=== PATIENT | male | born 1960 | race Caucasian/White ===

== ENCOUNTER 2020-05-11 12:29 | Inpatient (IN) | payer MEDICARE, MEDICAID ==
[~2020-05-11] VITALS: Ht 167.6 cm; Wt 100.5 kg
[2020-05-11 13:19] LABS: BASOPHILS # (AUTO) 0.01 x10^3/uL (0-0.1); BASOPHILS % (AUTO) 0 % (0-1); EOSINOPHILS # (AUTO) 0.05 x10^3/uL (0-0.4); EOSINOPHILS % (AUTO) 1 % (1-7); LYMPHOCYTES # (AUTO) 0.82 x10^3/uL (1-3.4); LYMPHOCYTES % (AUTO) 12 % (22-44); MD NO; MEAN CORPUSCULAR HEMOGLOBIN 33.3 pg (27.5-34.5); MEAN CORPUSCULAR HGB CONC 32.5 g/dL (33.2-36.2); MEAN PLATELET VOLUME 8.8 fL (7.4-10.4); MONOCYTES # (AUTO) 0.73 x10^3/uL (0.2-0.8); MONOCYTES % (AUTO) 10 % (2-9); NEUTROPHILS # (AUTO) 5.43 x10^3/uL (1.8-6.8); NEUTROPHILS % (AUTO) 77 % (42-75); PLATELET COUNT 151 x10^3/uL (130-400); RED BLOOD COUNT 3.89 x10^6/uL (4.38-5.82)
--- NOTE | 2020-05-11 13:23 | NUR ---
PT STATES INCREASING ABD DISTENTION X2 MONTHS. PT STATES ANITHA SOB WELL. PT PLACED ON MONITORS, IV STARTED. LABS DRAWN, SENT TO LAB. AWAITING XRAY RESULTS. PT IN RESPIR DISTRESS. CONT TO MONITOR.
[2020-05-11 13:31] LABS: ALANINE AMINOTRANSFERASE 37 U/L (12-78); ALBUMIN 2.5 g/dL (3.4-5.0); ANION GAP 6 mmol/L (5-15); CALCIUM 8.5 mg/dL (8.5-10.1); CHLORIDE 100 mmol/L (98-107)
[2020-05-11 13:36] LABS: ALKALINE PHOSPHATASE 282 U/L (45-117); CREATININE 0.93 mg/dL (0.7-1.3); TOTAL PROTEIN 7.5 g/dL (6.4-8.2); TROPONIN I < 0.015 ng/mL (0.000-0.045)
--- NOTE | 2020-05-11 14:22 | NUR ---
PT UA COLLECTED, SENT TO LAB. PT REMAINS ON MONITORS, VSS. NO RESPIR DISTRESS. CONT TO MONITOR.
[2020-05-11 14:29] LABS: MICROSCOPIC NOT IND
--- NOTE | 2020-05-11 15:19 | NUR ---
US AT BEDSIDE FOR EXAM.
[2020-05-11] MEDS ORDERED: FUROSEMIDE 40 MG/4 ML ONE (16:07)
--- NOTE | 2020-05-11 16:18 | NUR ---
PT RESTING IN BED, AWARE OF POC, WILL GO TO IR FOR PARACENTESIS. PT REMAINS ON MONITORS, VSS. CONT TO MONITOR.
[2020-05-11] MEDS ORDERED: FUROSEMIDE 40 MG/4 ML IV ONE (16:30)
[2020-05-11] MEDS ORDERED: AZITHROMYCIN 500 MG in SODIUM CHLORIDE 0.9% 250 ML IV ONE (16:30)
[2020-05-11] MEDS ORDERED: CEFTRIAXONE PMX 1GM/50ML 50 ML IVPB ONE (16:30)
[2020-05-11] MEDS ORDERED: CEFTRIAXONE PMX 1GM/50ML 50 ML ONE (16:34)
[2020-05-11] MEDS ORDERED: LIDOCAINE 1%, 10ML ONE (17:09)
--- NOTE | 2020-05-11 17:18 | NUR ---
PT TO IR.
[2020-05-11] MEDS ORDERED: POLYETHYLENE GLYCOL 17 GM PACKET PO PRN (18:00)
[2020-05-11] MEDS ORDERED: ONDANSETRON ODT 4 MG PO PRN (18:00)
[2020-05-11] MEDS ORDERED: BISACODYL 10 MG SUPP PR PRN (18:00)
[2020-05-11] MEDS ORDERED: OXYcodone IR 5MG TABLET PO PRN (18:00)
--- NOTE | 2020-05-11 18:05 | NUR ---
PT BACK FROM IR, PER IR TECH, 6L ABD FLUID REMOVED FROM PT. ADMITTING AT BEDSIDE FOR ASSESSMENT.
[2020-05-11] MEDS ORDERED: HEPARIN 5,000 UNITS/ML, 1ML ONE (18:13)
--- NOTE | 2020-05-11 18:16 | NUR ---
MEDICATIONS (ZITHROMAX) REQUESTED FROM PHARMACY, OMNICELL OUT OF MEDICATION.
[2020-05-11] MEDS: HEPARIN 5,000 UNITS/ML, 1ML SQ SCH (18:26)
[2020-05-11 18:32] LABS: INTERNATIONAL NORMALIZED RATIO 1.07 (0.93-1.1); PROTHROMBIN TIME 11.3 Seconds (9.6-11.5)
[2020-05-11 19:01] LABS: CELLS COUNTED 92
--- NOTE | 2020-05-11 19:33 | NUR ---
PT RESTING IN BED, REMAINS ON MONITORS, VSS. PT AWAITING ADMIT BED. PT REMAINS AWARE OF PLAN OF CARE, VERBALIZED UNDERSTANDING. CONT TO MONITOR.
[2020-05-11] MEDS: SODIUM CHLORIDE FLUSH 10ML SYR IVF SCH (20:23)
[2020-05-11] MEDS ORDERED: FURO-93 PO (20:29)
[2020-05-11] MEDS ORDERED: POTA99TA24 PO (20:30)
--- NOTE | 2020-05-11 20:30 | NUR ---
REPORT JOSR GEORGES RN. PT OK TO TRANSFER TO FLOOR.
--- NOTE | 2020-05-11 20:40 | NUR ---
PT TRANSFERED TO [facility], HAS ALL OWN BELONGINGS UPON TRANSFER.
[2020-05-11 20:51] VITALS: BP 146/82
[2020-05-11 21:27] VITALS: BP 146/82
[2020-05-12 01:44] VITALS: BP 120/68
[2020-05-12] MEDS: HEPARIN 5,000 UNITS/ML, 1ML SQ SCH ×3 (02:18→17:50)
[2020-05-12 06:28] LABS: ALBUMIN 2.2 g/dL (3.4-5.0); ANION GAP 6 mmol/L (5-15); CHLORIDE 101 mmol/L (98-107)
[2020-05-12 06:31] LABS: ALANINE AMINOTRANSFERASE 31 U/L (12-78); ALKALINE PHOSPHATASE 251 U/L (45-117); CREATININE 0.71 mg/dL (0.7-1.3); TOTAL PROTEIN 6.7 g/dL (6.4-8.2)
[2020-05-12 06:35] LABS: BASOPHILS # (AUTO) 0.03 x10^3/uL (0-0.1); BASOPHILS % (AUTO) 1 % (0-1); EOSINOPHILS % (AUTO) 2 % (1-7); LYMPHOCYTES # (AUTO) 0.85 x10^3/uL (1-3.4); LYMPHOCYTES % (AUTO) 17 % (22-44); MD NO; MEAN CORPUSCULAR HEMOGLOBIN 33.9 pg (27.5-34.5); MEAN CORPUSCULAR HGB CONC 33.7 g/dL (33.2-36.2); MEAN PLATELET VOLUME 8.7 fL (7.4-10.4); MONOCYTES # (AUTO) 0.71 x10^3/uL (0.2-0.8); MONOCYTES % (AUTO) 14 % (2-9); NEUTROPHILS # (AUTO) 3.42 x10^3/uL (1.8-6.8); NEUTROPHILS % (AUTO) 67 % (42-75); PLATELET COUNT 117 x10^3/uL (130-400); RED BLOOD COUNT 3.58 x10^6/uL (4.38-5.82); RED CELL DISTRIBUTION WIDTH 14.1 % (9.4-14.8)
[2020-05-12 07:16] VITALS: BP 112/67
[2020-05-12] MEDS: SODIUM CHLORIDE FLUSH 10ML SYR IVF SCH ×2 (08:14→21:37)
[2020-05-12] MEDS: FUROSEMIDE 20 MG/2 ML IV SCH ×2 (08:14→17:49)
[2020-05-12] MEDS: SENNA/DOCUSATE TABLET PO SCH (08:15)
[2020-05-12] MEDS ORDERED: DEXTROSE 50%, 50ML SYRINGE IVPush PRN (12:30)
[2020-05-12] MEDS ORDERED: DEXTROSE 4 GM TAB.CHEW PO PRN (12:30)
[2020-05-12] MEDS ORDERED: GLUCAGON 1 MG IM PRN (12:30)
[2020-05-12 12:52] VITALS: BP 119/89
[2020-05-12] MEDS: INSULIN LISPRO 100 UNITS/ML, PEN SQ-INSULIN SCH ×4 (13:05→21:37)
[2020-05-12 19:16] VITALS: BP 108/63
[2020-05-12] MEDS: INSULIN NPH HUMAN 100 UNIT/ML, 3ML VIAL SQ-INSULIN SCH (21:36)
[2020-05-13 01:17] VITALS: BP 111/64
[2020-05-13] MEDS: HEPARIN 5,000 UNITS/ML, 1ML SQ SCH ×2 (03:09→12:23)
[2020-05-13 05:56] LABS: ANION GAP 7 mmol/L (5-15); CALCIUM 8.3 mg/dL (8.5-10.1); CHLORIDE 101 mmol/L (98-107)
[2020-05-13 05:58] LABS: BASOPHILS # (AUTO) 0.02 x10^3/uL (0-0.1); BASOPHILS % (AUTO) 0 % (0-1); EOSINOPHILS # (AUTO) 0.13 x10^3/uL (0-0.4); EOSINOPHILS % (AUTO) 3 % (1-7); LYMPHOCYTES # (AUTO) 0.97 x10^3/uL (1-3.4); LYMPHOCYTES % (AUTO) 19 % (22-44); MD NO; MEAN CORPUSCULAR HEMOGLOBIN 33.7 pg (27.5-34.5); MEAN CORPUSCULAR HGB CONC 33.5 g/dL (33.2-36.2); MEAN PLATELET VOLUME 9.1 fL (7.4-10.4); MONOCYTES # (AUTO) 0.79 x10^3/uL (0.2-0.8); MONOCYTES % (AUTO) 15 % (2-9); NEUTROPHILS # (AUTO) 3.34 x10^3/uL (1.8-6.8); NEUTROPHILS % (AUTO) 64 % (42-75); PLATELET COUNT 116 x10^3/uL (130-400); RED BLOOD COUNT 3.72 x10^6/uL (4.38-5.82)
[2020-05-13 05:59] LABS: CREATININE 0.71 mg/dL (0.7-1.3)
[2020-05-13] MEDS ORDERED: INSULIN REGULAR 100 UNITS/ML, 3ML VIAL SQ-INSULIN SCH (07:30)
[2020-05-13] MEDS: INSULIN LISPRO 100 UNITS/ML, PEN SQ-INSULIN SCH ×4 (07:40→12:24)
[2020-05-13 07:54] VITALS: BP 129/76
[2020-05-13] MEDS: FUROSEMIDE 20 MG/2 ML IV SCH (09:22)
[2020-05-13] MEDS: SODIUM CHLORIDE FLUSH 10ML SYR IVF SCH (09:23)
[2020-05-13] MEDS: INSULIN NPH HUMAN 100 UNIT/ML, 3ML VIAL SQ-INSULIN SCH (09:23)
[2020-05-13] MEDS: SENNA/DOCUSATE TABLET PO SCH (09:23)
== END 2020-05-13 13:28 | disposition home or self-care (01) | DRG 433 ==
LOC: ED 17:05 → EDIP 17:13 → ED 17:20 → 4WST 20:45 → DCLOUNGE 05-13 13:13
PROVIDERS: ADMIT Internal Medicine; ATTEND Hospitalist
PROC: 0W9G3ZX Drainage of Peritoneal Cavity, Percutaneous Approach, Diagnostic (ICD-10-PCS; principal; 2020-05-11)
DX: K74.60 Unspecified cirrhosis of liver (principal); R18.8 Other ascites; F20.0 Paranoid schizophrenia; E87.1 Hypo-osmolality and hyponatremia; E87.2 Acidosis; E78.5 Hyperlipidemia, unspecified; E11.9 Type 2 diabetes mellitus without complications; F17.210 Nicotine dependence, cigarettes, uncomplicated; D75.89 Other specified diseases of blood and blood-forming organs; K81.1 Chronic cholecystitis; Z90.89 Acquired absence of other organs; Z88.8 Allergy status to other drugs, medicaments and biological substances; Z79.4 Long term (current) use of insulin; Z83.3 Family history of diabetes mellitus; Z81.1 Family history of alcohol abuse and dependence; Z80.8 Family history of malignant neoplasm of other organs or systems; Z82.49 Family history of ischemic heart disease and other diseases of the circulatory system
CPT/HCPCS: 36415; 49083; 71045; 76700; 80048; 80053; 81003; 82042; 82607; 82962; 83036; 83605; 83615; 83880; 84145; 84484; 85025; 85610; 85730; 87040; 87070; 87205; 89051; 93005; 93306; 96365; 96375; G0378; J0456; J0696; J1644; J1815; J1940; J7050

== ENCOUNTER 2020-06-15 23:36 | Emergency (ER) | payer MEDICARE, MEDICAID ==
[~2020-06-15] VITALS: Ht 172.7 cm; Wt 98.8 kg
[~2020-06-15 23:36] MED LIST: FURO-93 PO; POTA99TA24 PO
--- NOTE | 2020-06-16 | NUR ---
PT CAME IN CO OF ABD PAIN AND DISTENTION. PT REPORTS HAVING LIVER CIRROHSIS.
--- NOTE | 2020-06-16 00:01 | NUR ---
PT CONNECTED TO MONITORING EQUIPMENT. CALLED US FOR PARACENTESIS KIT. AWIATING CALL BACK
[2020-06-16 00:21] LABS: INTERNATIONAL NORMALIZED RATIO 1.12 (0.93-1.1); PROTHROMBIN TIME 11.6 Seconds (9.6-11.5)
[2020-06-16 00:22] LABS: ALANINE AMINOTRANSFERASE 26 U/L (12-78); ALBUMIN 2.7 g/dL (3.4-5.0); ANION GAP 6 mmol/L (5-15); CALCIUM 8.1 mg/dL (8.5-10.1); CHLORIDE 102 mmol/L (98-107); CREATININE 1.07 mg/dL (0.7-1.3)
[2020-06-16 00:24] LABS: ALKALINE PHOSPHATASE 202 U/L (45-117); TOTAL PROTEIN 7.1 g/dL (6.4-8.2)
[2020-06-16] MEDS ORDERED: LIDOCAINE-MPF 2% ,5ML ONE (01:09)
--- NOTE | 2020-06-16 01:12 | NUR ---
REPORT FROM IOANA SHELTON MD AT BEDSIDE FOR PARACENTISIS
[2020-06-16 01:14] LABS: BASOPHILS # (AUTO) 0.03 x10^3/uL (0-0.1); BASOPHILS % (AUTO) 1 % (0-1); EOSINOPHILS # (AUTO) 0.15 x10^3/uL (0-0.4); EOSINOPHILS % (AUTO) 3 % (1-7); LYMPHOCYTES # (AUTO) 0.89 x10^3/uL (1-3.4); LYMPHOCYTES % (AUTO) 17 % (22-44); MD SCAN; MEAN CORPUSCULAR HEMOGLOBIN 33.7 pg (27.5-34.5); MEAN CORPUSCULAR HGB CONC 33.3 g/dL (33.2-36.2); MEAN CORPUSCULAR VOLUME 101.3 fL (81-97); MONOCYTES # (AUTO) 0.65 x10^3/uL (0.2-0.8); MONOCYTES % (AUTO) 12 % (2-9); NEUTROPHILS # (AUTO) 3.66 x10^3/uL (1.8-6.8); NEUTROPHILS % (AUTO) 68 % (42-75); PLATELET COUNT 80 x10^3/uL (130-400); RED BLOOD COUNT 3.45 x10^6/uL (4.38-5.82); RED CELL DISTRIBUTION WIDTH 14.8 % (9.4-14.8)
[2020-06-16 02:34] VITALS: BP 125/63
--- NOTE | 2020-06-16 02:50 | NUR ---
AT BEDSIDE RE EVALUATING PT.
--- NOTE | 2020-06-16 03:35 | NUR ---
Patient given discharge instructions and they have confirmed that they understand the instructions. Patient ambulatory with steady gait.
== END 2020-06-16 03:35 | disposition home or self-care (01) ==
LOC: ED 06-16 00:44
DX: K42.9 Umbilical hernia without obstruction or gangrene (principal); K70.31 Alcoholic cirrhosis of liver with ascites; R10.84 Generalized abdominal pain; E11.9 Type 2 diabetes mellitus without complications; F17.210 Nicotine dependence, cigarettes, uncomplicated
CPT/HCPCS: 36415; 49083; 80053; 83690; 85025; 85610; 99285; 99406

== ENCOUNTER 2020-07-22 19:24 | Emergency (ER) | payer MEDICARE, MEDICAID ==
[~2020-07-22] VITALS: Ht 162.6 cm; Wt 98.6 kg
[2020-07-22] MEDS ORDERED: LIDOCAINE-MPF 1%, 5ML ONE (19:57)
--- NOTE | 2020-07-22 20:00 | NUR ---
Pt traveled [place]acentesis with [place] tech
[2020-07-22 21:16] LABS: INTERNATIONAL NORMALIZED RATIO 1.12 (0.93-1.1); PROTHROMBIN TIME 11.5 Seconds (9.6-11.5)
[2020-07-22 21:17] LABS: ALANINE AMINOTRANSFERASE 36 U/L (12-78); ALBUMIN 2.8 g/dL (3.4-5.0); ANION GAP 7 mmol/L (5-15); CALCIUM 8.8 mg/dL (8.5-10.1); CHLORIDE 98 mmol/L (98-107); CREATININE 1.07 mg/dL (0.7-1.3)
[2020-07-22 21:19] LABS: ALKALINE PHOSPHATASE 194 U/L (45-117); TOTAL PROTEIN 7.7 g/dL (6.4-8.2)
[2020-07-22 21:22] LABS: MEAN CORPUSCULAR HEMOGLOBIN 33.1 pg (27.5-34.5); MEAN CORPUSCULAR HGB CONC 32.9 g/dL (33.2-36.2); MEAN CORPUSCULAR VOLUME 100.5 fL (81-97); MEAN PLATELET VOLUME 9.5 fL (7.4-10.4); PLATELET COUNT 80 x10^3/uL (130-400); RED BLOOD COUNT 4.03 x10^6/uL (4.38-5.82); RED CELL DISTRIBUTION WIDTH 14.4 % (9.4-14.8)
[2020-07-22 21:47] LABS: BASOPHILS # (AUTO) 0.02 x10^3/uL (0-0.1); BASOPHILS % (AUTO) 0 % (0-1); EOSINOPHILS % (AUTO) 2 % (1-7); LYMPHOCYTES # (AUTO) 0.95 x10^3/uL (1-3.4); LYMPHOCYTES % (AUTO) 19 % (22-44); MD SCAN; MONOCYTES # (AUTO) 0.65 x10^3/uL (0.2-0.8); MONOCYTES % (AUTO) 13 % (2-9); NEUTROPHILS # (AUTO) 3.42 x10^3/uL (1.8-6.8); NEUTROPHILS % (AUTO) 66 % (42-75)
[2020-07-22 22:15] VITALS: BP 129/78
== END 2020-07-22 22:17 | disposition home or self-care (01) ==
LOC: ED 20:42
DX: K70.11 Alcoholic hepatitis with ascites (principal); E11.9 Type 2 diabetes mellitus without complications; F17.200 Nicotine dependence, unspecified, uncomplicated
CPT/HCPCS: 36415; 49083; 80053; 85025; 85610; 85730; 99285

== ENCOUNTER 2020-07-23 07:31 | Emergency (ER) | payer MEDICARE, MEDICAID ==
[~2020-07-23] VITALS: Ht 172.7 cm; Wt 90.6 kg
[2020-07-23] MEDS ORDERED: ONDANSETRON 2MG/ML, 2ML ONE (08:11)
[2020-07-23] MEDS ORDERED: MORPHINE SULFATE 4 MG/ML, 1ML ONE ×2 (08:11→08:37)
[2020-07-23] MEDS: MORPHINE SULFATE 4 MG/ML, 1ML IVPush PRN ×2 (08:17→08:53)
[2020-07-23 08:25] LABS: MEAN CORPUSCULAR HEMOGLOBIN 33.2 pg (27.5-34.5); MEAN CORPUSCULAR HGB CONC 32.9 g/dL (33.2-36.2); MEAN CORPUSCULAR VOLUME 100.9 fL (81-97); MEAN PLATELET VOLUME 9.5 fL (7.4-10.4); PLATELET COUNT 84 x10^3/uL (130-400); RED BLOOD COUNT 4.33 x10^6/uL (4.38-5.82); RED CELL DISTRIBUTION WIDTH 14.5 % (9.4-14.8)
--- NOTE | 2020-07-23 08:25 | NUR ---
pt in bed with nibp and [address] iv access obtained, blood draw completed and pt medicated per order. call light in reach and pt encouraged to call for any needs.
[2020-07-23 08:28] LABS: ALANINE AMINOTRANSFERASE 39 U/L (12-78); ANION GAP 9 mmol/L (5-15); CALCIUM 9.1 mg/dL (8.5-10.1); CHLORIDE 98 mmol/L (98-107); CREATININE 0.95 mg/dL (0.7-1.3)
[2020-07-23 08:30] LABS: ALKALINE PHOSPHATASE 213 U/L (45-117); BILIRUBIN,TOTAL 1.1 mg/dL (0.2-1.0); TOTAL PROTEIN 8.4 g/dL (6.4-8.2)
[2020-07-23] MEDS ORDERED: SODIUM CHLORIDE FLUSH 10ML SYR IVF ONE (08:30)
[2020-07-23] MEDS ORDERED: ONDANSETRON 2MG/ML, 2ML IVPush ONE (08:30)
[2020-07-23 08:40] LABS: BASOPHILS # (AUTO) 0.02 x10^3/uL (0-0.1); BASOPHILS % (AUTO) 1 % (0-1); EOSINOPHILS # (AUTO) 0.11 x10^3/uL (0-0.4); EOSINOPHILS % (AUTO) 3 % (1-7); LYMPHOCYTES # (AUTO) 0.65 x10^3/uL (1-3.4); LYMPHOCYTES % (AUTO) 15 % (22-44); MD SCAN; MONOCYTES # (AUTO) 0.57 x10^3/uL (0.2-0.8); MONOCYTES % (AUTO) 13 % (2-9); NEUTROPHILS # (AUTO) 3.01 x10^3/uL (1.8-6.8); NEUTROPHILS % (AUTO) 69 % (42-75)
--- NOTE | 2020-07-23 08:54 | NUR ---
pt remains in pain. pain level 6/10 unless hernia is palpated which increases pain. pt medicated per order. dr alcala in room to try and reduce hernia. md was unsuccessful. md to order ct of abdomen.
[2020-07-23] MEDS ORDERED: OMNIPAQUE 350 MG/ML, 100ML BOTTLE ONE (09:09)
[2020-07-23] MEDS ORDERED: HYDROmorphone 1 MG/ML, 1ML INJ ONE (09:24)
[2020-07-23] MEDS ORDERED: HYDROmorphone 2 MG/ML, 1ML IVPush PRN (09:30)
[2020-07-23 10:11] VITALS: BP 119/66
== END 2020-07-23 10:25 | disposition home or self-care (01) ==
LOC: ED 08:55
DX: K42.9 Umbilical hernia without obstruction or gangrene (principal); K70.30 Alcoholic cirrhosis of liver without ascites; E11.9 Type 2 diabetes mellitus without complications
CPT/HCPCS: 36415; 74177; 80053; 83690; 85025; 96374; 96375; 96376; 99285; J1170; J2270; J2405; Q9967

== ENCOUNTER 2020-08-05 14:52 | Emergency (ER) | payer MEDICARE, MEDICAID ==
[~2020-08-05] VITALS: Ht 172.7 cm; Wt 91.4 kg
--- NOTE | 2020-08-05 15:45 | NUR ---
BUDGET EXAMINER:PT AMBULATORY TO ROOM WITH STEADY GAIT FROM LOBBY WITH BAG SORTER AT THIS TIME
[2020-08-05] MEDS ORDERED: HYDROmorphone 1 MG/ML, 1ML INJ IM STA (16:29)
[2020-08-05] MEDS ORDERED: HYDROmorphone 1 MG/ML, 1ML INJ ONE (16:39)
[2020-08-05] MEDS ORDERED: LIDOCAINE 1%, 10ML ONE (16:40)
--- NOTE | 2020-08-05 16:45 | NUR ---
med per mar, to paracentesis, vss. as
--- NOTE | 2020-08-05 17:32 | NUR ---
back from paracentesis 1 L off. bp ok as charted, drowsy from meds. nad. as
[2020-08-05 18:00] VITALS: BP 99/65
== END 2020-08-05 18:53 | disposition home or self-care (01) ==
LOC: ED 17:00
DX: K70.31 Alcoholic cirrhosis of liver with ascites (principal); E11.9 Type 2 diabetes mellitus without complications; F17.200 Nicotine dependence, unspecified, uncomplicated
CPT/HCPCS: 49083; 96372; 99285; J1170; J3490

== ENCOUNTER 2020-08-16 13:38 | Emergency (ER) | payer MEDICARE, MEDICAID ==
[~2020-08-16] VITALS: Ht 172.7 cm; Wt 95.8 kg
--- NOTE | 2020-08-16 14:15 | NUR ---
"NO SLEEP, LOTS OF PAIN, CRAMPING THAT WILL NOT STOP OR GO AWAY ALL OVER BODY, SHORT OF BREATH ON GOING, REALLY STRUGGLING TO BREATH." DENIES CP, N/V/D. EKG COMPLETED IN TRIAGE. PT IN BED IN GOWN WITH CONT COMPLIANCE MGR, SPO2, BP Q 30 MIN, SIDE RAILS UP X2, CALL LIGHT IN REACH. PA AT BEDSIDE
[2020-08-16 15:02] LABS: ALANINE AMINOTRANSFERASE 32 U/L (12-78); ALBUMIN 2.8 g/dL (3.4-5.0); ANION GAP 7 mmol/L (5-15); CALCIUM 8.9 mg/dL (8.5-10.1); CHLORIDE 100 mmol/L (98-107); CREATININE 1.06 mg/dL (0.7-1.3)
--- NOTE | 2020-08-16 15:03 | NUR ---
PT CALM IN ROOM, NOTIFIED THAT HE WILL BE GOING TO IR. PT AGREES.
[2020-08-16 15:05] LABS: BASOPHILS % (AUTO) 1 % (0-1); EOSINOPHILS % (AUTO) 1 % (1-7); LYMPHOCYTES % (AUTO) 9 % (22-44); MEAN CORPUSCULAR HEMOGLOBIN 32.9 pg (27.5-34.5); MEAN PLATELET VOLUME 9.9 fL (7.4-10.4); MONOCYTES % (AUTO) 9 % (2-9); NEUTROPHILS % (AUTO) 81 % (42-75); PLATELET COUNT 73 x10^3/uL (130-400); RED CELL DISTRIBUTION WIDTH 14.9 % (9.4-14.8)
[2020-08-16 15:07] LABS: ALKALINE PHOSPHATASE 195 U/L (45-117); BILIRUBIN,TOTAL 1.4 mg/dL (0.2-1.0); TOTAL PROTEIN 7.7 g/dL (6.4-8.2)
[2020-08-16 15:24] LABS: MD NO
[2020-08-16] MEDS ORDERED: OXYcodone/APAP 5/325MG TABLET PO ONE (15:30)
[2020-08-16] MEDS ORDERED: MORPHINE SULFATE 4 MG/ML, 1ML IVPush ONE (15:30)
[2020-08-16] MEDS ORDERED: OXYcodone/APAP 5/325MG TABLET ONE (15:41)
[2020-08-16] MEDS ORDERED: LIDOCAINE 1%, 10ML ONE (15:42)
--- NOTE | 2020-08-16 16:27 | NUR ---
PT BACK FROM IR. THEY TOOK 4.9 L OFF
[2020-08-16 17:12] VITALS: BP 124/78
== END 2020-08-16 17:14 | disposition home or self-care (01) ==
LOC: ED 14:18
DX: K70.31 Alcoholic cirrhosis of liver with ascites (principal); R06.00 Dyspnea, unspecified; R25.2 Cramp and spasm; R94.31 Abnormal electrocardiogram [ECG] [EKG]; F17.210 Nicotine dependence, cigarettes, uncomplicated; E11.9 Type 2 diabetes mellitus without complications
CPT/HCPCS: 36415; 49083; 71046; 80053; 83690; 83880; 85025; 93005; 99285; 99406; J3490

== ENCOUNTER 2020-08-27 11:23 | Emergency (ER) | payer MEDICARE, MEDICAID ==
[~2020-08-27] VITALS: Ht 172.7 cm; Wt 95.1 kg
--- NOTE | 2020-08-27 12:15 | NUR ---
PT TO IR.
[2020-08-27] MEDS ORDERED: LIDOCAINE 1%, 10ML ONE (12:34)
--- NOTE | 2020-08-27 13:27 | NUR ---
PT BACK FROM IR. 2.4L REMOVED FROM ABD. PT STATES IT'S A LITTLE EASIER TO BREATHE. VSS.
[2020-08-27 13:28] VITALS: BP 110/58
== END 2020-08-27 14:01 | disposition home or self-care (01) ==
LOC: ED 12:25
DX: K70.31 Alcoholic cirrhosis of liver with ascites (principal); J90 Pleural effusion, not elsewhere classified; R06.00 Dyspnea, unspecified; R06.02 Shortness of breath; M25.511 Pain in right shoulder; R00.0 Tachycardia, unspecified; I10 Essential (primary) hypertension
CPT/HCPCS: 49083; 71045; 73030; 88112; 88305; 99285; J3490

== ENCOUNTER 2020-09-01 07:39 | Emergency (ER) | payer MEDICARE, MEDICAID ==
[~2020-09-01] VITALS: Ht 172.7 cm; Wt 91.1 kg
[2020-09-01 07:45] VITALS: BP 117/76
[2020-09-01] MEDS ORDERED: ACETAMINOPHEN 325 MG TABLET ONE (08:25)
[2020-09-01 08:28] LABS: BASOPHILS % (AUTO) 0 % (0-1); EOSINOPHILS % (AUTO) 1 % (1-7); LYMPHOCYTES % (AUTO) 11 % (22-44); MEAN CORPUSCULAR HEMOGLOBIN 33.2 pg (27.5-34.5); MEAN CORPUSCULAR HGB CONC 33.4 g/dL (33.2-36.2); MEAN PLATELET VOLUME 9.6 fL (7.4-10.4); MONOCYTES % (AUTO) 12 % (2-9); NEUTROPHILS % (AUTO) 76 % (42-75); PLATELET COUNT 80 x10^3/uL (130-400); RED BLOOD COUNT 4.11 x10^6/uL (4.38-5.82); RED CELL DISTRIBUTION WIDTH 15.2 % (9.4-14.8)
[2020-09-01] MEDS ORDERED: ACETAMINOPHEN 325 MG TABLET PO ONE (08:30)
[2020-09-01 08:31] LABS: MD NO
[2020-09-01 08:37] LABS: ALANINE AMINOTRANSFERASE 33 U/L (12-78); ALBUMIN 2.9 g/dL (3.4-5.0); ANION GAP 9 mmol/L (5-15); CALCIUM 9.2 mg/dL (8.5-10.1); CHLORIDE 101 mmol/L (98-107); CREATININE 0.88 mg/dL (0.7-1.3)
[2020-09-01 08:40] LABS: ALKALINE PHOSPHATASE 202 U/L (45-117); BILIRUBIN,TOTAL 1.5 mg/dL (0.2-1.0); TOTAL PROTEIN 7.9 g/dL (6.4-8.2)
--- NOTE | 2020-09-01 09:25 | NUR ---
Pt up for discharge. Stable. Ambulatory.
== END 2020-09-01 09:43 | disposition home or self-care (01) ==
LOC: ED 07:57
DX: K70.31 Alcoholic cirrhosis of liver with ascites (principal); R79.82 Elevated C-reactive protein (CRP); M79.10 Myalgia, unspecified site; E87.1 Hypo-osmolality and hyponatremia; D69.6 Thrombocytopenia, unspecified; E11.9 Type 2 diabetes mellitus without complications; I10 Essential (primary) hypertension; F17.200 Nicotine dependence, unspecified, uncomplicated
CPT/HCPCS: 36415; 80053; 83735; 85025; 99283

== ENCOUNTER 2020-09-13 03:02 | Emergency (ER) | payer MEDICARE, MEDICAID ==
[~2020-09-13] VITALS: Ht 172.7 cm; Wt 99.8 kg
[2020-09-13] MEDS ORDERED: LIDOCAINE-MPF 1%, 5ML ONE (03:24)
[2020-09-13] MEDS ORDERED: SODIUM CHLORIDE FLUSH 10ML SYR IVF ONE (03:30)
[2020-09-13] MEDS ORDERED: LIDOCAINE 1%, 10ML INFIL ONE (03:30)
[2020-09-13 03:42] LABS: BASOPHILS % (AUTO) 1 % (0-1); EOSINOPHILS % (AUTO) 3 % (1-7); LYMPHOCYTES % (AUTO) 12 % (22-44); MEAN CORPUSCULAR HEMOGLOBIN 33.4 pg (27.5-34.5); MEAN CORPUSCULAR HGB CONC 33.4 g/dL (33.2-36.2); MEAN PLATELET VOLUME 9.4 fL (7.4-10.4); MONOCYTES % (AUTO) 15 % (2-9); NEUTROPHILS % (AUTO) 69 % (42-75); PLATELET COUNT 66 x10^3/uL (130-400); RED BLOOD COUNT 3.84 x10^6/uL (4.38-5.82); RED CELL DISTRIBUTION WIDTH 15.7 % (9.4-14.8)
[2020-09-13 03:45] LABS: MD NO
[2020-09-13 03:52] LABS: ALBUMIN 2.7 g/dL (3.4-5.0); ANION GAP 5 mmol/L (5-15); CALCIUM 8.4 mg/dL (8.5-10.1); CHLORIDE 103 mmol/L (98-107); INTERNATIONAL NORMALIZED RATIO 1.11 (0.93-1.1); PROTHROMBIN TIME 11.8 Seconds (9.6-11.5)
[2020-09-13 03:56] LABS: ALANINE AMINOTRANSFERASE 35 U/L (12-78); ALKALINE PHOSPHATASE 216 U/L (45-117); BILIRUBIN,TOTAL 1.8 mg/dL (0.2-1.0); CREATININE 0.85 mg/dL (0.7-1.3); TOTAL PROTEIN 7.4 g/dL (6.4-8.2)
--- NOTE | 2020-09-13 04:12 | NUR ---
REPORT RECEIVED FROM MARI DARDEN
--- NOTE | 2020-09-13 05:10 | NUR ---
FLUID DRAINING HAZY YELLOW FROM ABDOMEN, PT TOLERATING WELL, THIS RN MONITORING QUANITY, PER DR JORGE DRAIN 6L.
[2020-09-13 05:21] VITALS: BP 123/63
[2020-09-13 06:10] LABS: CELLS COUNTED 45
--- NOTE | 2020-09-13 06:19 | NUR ---
WAITING FOR LAB RESULTS ON PARACENTESIS BEFORE DC. PT AND IMPATIENT BUT VERBALIZE IMPORTANCE OF WAITING.
== END 2020-09-13 06:46 | disposition home or self-care (01) ==
LOC: ED 03:39
DX: K70.31 Alcoholic cirrhosis of liver with ascites (principal); R94.31 Abnormal electrocardiogram [ECG] [EKG]
CPT/HCPCS: 36415; 49083; 80053; 82042; 83615; 85025; 85610; 85730; 87070; 87205; 89051; 93005; 99285